=== PATIENT | male | born 1930 | race Caucasian/White ===

== ENCOUNTER 2016-03-31 | Outpatient (CLI) | payer MEDICARE, OTHER | END 2016-03-31 23:59 | disposition EMS.NT ==

== ENCOUNTER 2016-05-16 | Outpatient (CLI) | payer MEDICARE, OTHER | END 2016-05-16 12:58 | disposition critical access hospital (66) | CPT/HCPCS: A0425; A0427 ==

== ENCOUNTER 2016-05-16 12:59 | Emergency (ER) | payer MEDICARE, OTHER ==
[2016-05-16] MEDS ORDERED: SODIUM CHLORIDE 0.9% 1,000 ML IV ONE (13:06)
[2016-05-16] MEDS ORDERED: SODIUM CHLORIDE 0.9% 500 ML IV ONE (15:40)
== END 2016-05-16 16:15 | disposition home or self-care (01) ==
DX: E86.0 Dehydration (principal); G20 Parkinson's disease; I10 Essential (primary) hypertension; Z85.038 Personal history of other malignant neoplasm of large intestine

== ENCOUNTER 2016-10-20 15:15 | Outpatient (CLI) | payer MEDICARE, OTHER | END 2016-10-20 15:16 | disposition home or self-care (01) | LOC: LAB.R 15:15 | PROVIDERS: ATTEND Family Medicine | DX: N39.0 Urinary tract infection, site not specified (principal) | CPT/HCPCS: 87086 ==

== ENCOUNTER 2016-11-08 16:11 | Outpatient (CLI) | payer MEDICARE, OTHER | END 2016-11-08 16:12 | disposition EMS.NT | LOC: EMS 16:11 | PROVIDERS: ATTEND Surgery | DX: Z03.89 Encounter for observation for other suspected diseases and conditions ruled out (principal) ==

== ENCOUNTER 2017-02-20 23:19 | Outpatient (CLI) | payer MEDICARE, OTHER | END 2017-02-20 23:20 | disposition short-term general hospital (02) | LOC: EMS 23:19 | PROVIDERS: ATTEND Surgery | DX: M25.551 Pain in right hip (principal); W18.30XA Fall on same level, unspecified, initial encounter; Y93.01 Activity, walking, marching and hiking; Y92.003 Bedroom of unspecified non-institutional (private) residence as the place of occurrence of the external cause | CPT/HCPCS: A0170; A0425; A0427 ==

== ENCOUNTER 2017-03-29 09:09 | Outpatient (CLI) | payer MEDICARE, OTHER | END 2017-03-29 09:10 | disposition critical access hospital (66) | LOC: EMS 09:09 | PROVIDERS: ATTEND Surgery | DX: R46.4 Slowness and poor responsiveness (principal); R29.810 Facial weakness; R53.83 Other fatigue | CPT/HCPCS: A0425; A0429 ==

== ENCOUNTER 2017-03-29 09:13 | Observation (INO) | payer MEDICARE, OTHER ==
--- NOTE | 2017-03-29 09:39 | ED Physician Documentation ---
PD HPI FOCAL NEURO - Stated complaint Stated Complaint: POSS STROKE - Chief complaint Chief Complaint: Neuro - History obtained from History obtained from: Family, EMS - History of Present Illness Timing - onset: How many hours ago (1.5) Timing - details: Abrupt onset Time of symptom onset unknown: Time of onset unknown (08:00) Severity of deficit: Moderate Weakness: Face, Arm, Leg Numbness: Face, Arm, Leg Associated symptoms: No: Headache, Nausea / vomiting, Head injury, Chest pain Baseline status: positive: Wheelchair (rehab S/P ORIF right femur fx), Dementia - Additional information Additional information: The patient is an 86-year-old male with a history of Parkinson's disease and 5 weeks status post ORIF right femur fracture, who presents via ambulance after becoming unresponsive while at the breakfast table at [facility] this morning 1.5 hours prior to arrival, at 8 AM. Medics noticed left facial droop and left arm weakness. He has had no vomiting, and denies headache or chest pain. There is been no recent trauma. Past medical history, in addition to Parkinson's and femur surgery, is significant for dementia, pacemaker placement, and remote history of colon cancer. CODE STATUS is DO NOT RESUSCITATE. Review of Systems Unable to obtain: Confused, Dementia Constitutional: denies: Fever Cardiac: denies: Chest pain / pressure Respiratory: denies: Dyspnea, Cough GI: denies: Vomiting Neurologic: reports: Focal weakness, Numbness. denies: Headache PD PAST MEDICAL HISTORY - Past Medical History Cardiovascular: Hypertension, Other Neuro: Dementia, Parkinson's Endocrine/Autoimmune: None GI: Other (Colon CA) : None HEENT: Chronic vision loss Psych: None Musculoskeletal: Other Derm: None - Past Surgical History Past Surgical History: Yes General: Colonoscopy, Other Ortho: Other (5 weeks S/P ORIF right femur fx) HEENT: Tonsil/Adenoidectomy Derm: Other - Present Medications Home Medications: Ambulatory Orders Medication Instructions Recorded Confirmed Bimatoprost 0.03% [Lumigan] 1 drops EACHEYE QPM 11/05/13 03/29/17 Brimonidine/Timolol [Combigan] 1 drops EACHEYE BID 11/05/13 03/29/17 Aspirin [Aspirin EC] 81 mg PO DAILY 03/29/17 03/29/17 Carbidopa/Levodopa ER 25/100 1 tab PO 0700,1200,1700,2100 03/29/17 03/29/17 [Sinemet Cr 25 mg/100 mg] Sertraline [Zoloft] 25 mg PO DAILY 03/29/17 03/29/17 clonazePAM [Clonazepam] 0.25 mg PO QPM 03/29/17 03/29/17 - Allergies Allergies/Adverse Reactions: Allergies Allergy/AdvReac Type Severity Reaction Status Date / Time No Known Drug Allergies Allergy Verified 05/16/16 13:02 - Social History Does the pt smoke?: No Smoking Status: Never smoker Does the pt drink ETOH?: No Does the pt have substance abuse?: No - Immunizations Immunizations are current?: Yes - POLST Patient has POLST: No PD ED PE NORMAL - Vitals Vital signs reviewed: Yes (Mildly hypertensive.) - General General: Other (Alert, with right preferential gaze. Responds slowly to questions, and is difficult to understand.) - HEENT HEENT: Atraumatic, PERRL, Pharynx benign, Other (Right preferential gaze, but does look to the left when prompted.) - Neck Neck: No adenopathy, No JVD - Cardiac Cardiac: RRR - Respiratory Respiratory: No respiratory distress, Clear bilaterally - Abdomen Abdomen: Soft, Non tender - Back Back: No CVA TTP - Derm Derm: No rash - Extremities Extremities: No edema, No calf tenderness / cord - Neuro Neuro: Other (Please see an IHSS exam.) Eye Opening: Spontaneous Motor: Obeys Commands Verbal: Confused GCS Score: 14 NIHSS - Time Time: 09:30 - Level of Consciousness Level of consciousness: (1) Not alert, but arousable by minor stimulation to obey, or answer LOC Questions: (1) Answers one Q correctly LOC Commands: (0) Performs both correctly - Gaze Best Gaze: (1) Partial gaze palsy - Visual Visual: (1) Partial hemianopia - Facial Palsy Facial Palsy: (2) Partial paralysis - Motor Arms (both separate) Motor Arm (right): (0) No drift Motor Arm (left): (2) Some effort against gravity - Motor Legs (both separate) Motor Leg (right): (3) No effort against gravity Motor Leg (left): (1) Drift - Limb Ataxia Limb Ataxia: (-) Amputation (Right leg is not amputated, but the patient barely tries to raise it. This is the leg he has been undergoing rehab for recent orthopedic surgery.) - Sensory Sensory: (1) Wjhk-gj-xisymhdm loss - Best Language Best Language: (1) [id number] - Dysarthria Dysarthria: (1) Xqvc-jy-[id number] dysarthria - Extinction and Inattention (formally neg Extinction and inattention: (1) Visual,tactile,auditory,spatial, or personal inattention - Total Score/Results Total Score/Result: 16 Results - Vitals Vitals: Vital Signs - 24 hr 03/29/17 03/29/17 09:21 09:45 Temperature 36.4 C L Heart Rate 87 90 Respiratory 14 16 Rate Blood Pressure 141/83 H O2 Saturation 97 99 Oxygen O2 Source Room air - EKG (time done) 09:36 Rate: Rate (enter#) (158) Rhythm: Paced Other comments: Other comments (Diffuse artifact from Parkinsonian tremor.) - Labs Labs: Laboratory Tests 03/29/17 03/29/17 03/29/17 09:17 09:20 09:20 WBC 7.3 RBC 3.39 L Hgb 11.1 L Hct 32.7 L MCV 96.3 H MCH 32.8 H MCHC 34.1 RDW 13.9 Plt Count 169 MPV 9.6 Neut # 5.2 Lymph # 1.1 L [place] # 0.5 Eos # 0.4 Baso # 0.1 Absolute Nucleated RBC 0.01 Nucleated RBC % 0.1 PT INR APTT Sodium 139 Potassium 4.2 Chloride 103 Carbon Dioxide 25 Anion Gap 11.0 BUN 21 H Creatinine 1.0 Estimated GFR (MDRD) 71 L Glucose 114 H POC Whole Bld Glucose 102 H Calcium 8.9 Total Bilirubin 0.7 AST 28 ALT < 10 L Alkaline Phosphatase 114 Total Protein 6.8 Albumin 3.5 Globulin 3.3 Albumin/Globulin Ratio 1.1 Lipase 20 L 03/29/17 09:47 WBC RBC Hgb Hct MCV MCH MCHC RDW Plt Count MPV Neut # Lymph # [place] # Eos # Baso # Absolute Nucleated RBC Nucleated RBC % PT 12.5 INR 1.1 APTT 25.2 Sodium Potassium Chloride Carbon Dioxide Anion Gap BUN Creatinine Estimated GFR (MDRD) Glucose POC Whole Bld Glucose Calcium Total Bilirubin AST ALT Alkaline Phosphatase Total Protein Albumin Globulin Albumin/Globulin Ratio Lipase - Rads (name of study) Head CT stroke protocol Radiology: Prelim report reviewed, EMP read contemporaneously, See rad report ( No acute intracranial abnormality is identified. Parenchymal volume loss and chronic white matter changes.) PD MEDICAL DECISION MAKING - ED course Complexity details: reviewed old records, reviewed results, re-evaluated patient , considered differential, d/w patient, d/w family, d/w [employer] consultant ED course: The patient's presentation is significant for acute stroke with left-sided neurologic deficits. Head CT reveals no evidence of intracranial hemorrhage. Acute infarct is not yet evident on the CT scan. On repeated exams the patient' s neurologic deficits are improving quite significantly over time. When he returned from CT scan he was much more alert, and could answer questions more clearly. He demonstrates greater ability to lift his left arm off the bed, although left arm drift remains. Likewise with his left leg. He continues to have decreased light touch sensation on the left face, arm, and leg. I discussed his condition with the neurologist at [facility], who recommended rectal aspirin and CT angiography of the head and neck. He advises that the patient is a high risk candidate for TPA and would recommend not administering TPA. I discussed his presentation with Dr. Lubin, who will admit him on observation status. Departure - Departure Disposition: ED Place in Observation Clinical Impression: Dementia, Parkinson disease Cerebrovascular accident (CVA) Qualifiers: CVA mechanism: unspecified Qualified Code(s): I63.9 - Cerebral infarction, unspecified Condition: Fair Discharge Date/Time: 03/29/17 11:26
[2017-03-29 09:42] LABS: BASOPHILS # (AUTO) 0.1 10^3/uL (0.0-0.1); BASOPHILS % (AUTO) 1.2 %; EOSINOPHILS # (AUTO) 0.4 10^3/uL (0.0-0.7); EOSINOPHILS % (AUTO) 5.3 %; HGB - HEMOGLOBIN 11.1 g/dL (14.0-18.0); LYMPHOCYTES # (AUTO) 1.1 10^3/uL (1.5-3.5); LYMPHOCYTES % (AUTO) 15.7 %; MEAN CORPUSCULAR HEMOGLOBIN 32.8 pg (27.0-31.0); MEAN CORPUSCULAR HGB CONC 34.1 g/dL (32.0-36.0); MEAN CORPUSCULAR VOLUME 96.3 fL (80.0-94.0); MEAN PLATELET VOLUME 9.6 fL (7.4-11.4); MONOCYTES # (AUTO) 0.5 10^3/uL (0.0-1.0); MONOCYTES % (AUTO) 7.2 %; NEUTROPHILS # (AUTO) 5.2 10^3/uL (1.5-6.6); NEUTROPHILS % (AUTO) 70.6 %; PLT - PLATELET COUNT 169 10^3/uL (130-450); RED BLOOD COUNT 3.39 10^6/uL (4.70-6.10); RED CELL DISTRIBUTION WIDTH 13.9 % (12.0-15.0); WHITE BLOOD COUNT 7.3 x10^3/uL (4.8-10.8)
--- NOTE | 2017-03-29 09:48 | CT Report ---
EXAM: CT HEAD EXAM DATE: 03/29/2017 09:36 AM. CLINICAL HISTORY: Left sided neuro deficits. COMPARISON: 02/16/2017. 10/22/2009. TECHNIQUE: Multiaxial CT images were obtained from the foramen magnum to the vertex. Reformats: Coron al. IV contrast: None. In accordance with CT protocol optimization, one or more of the following dose reduction techniques w ere utilized for this exam: automated exposure control, adjustment of mA and/or KV based on patient s ize, or use of iterative reconstructive technique. FINDINGS: Parenchyma: Parenchymal volume loss with periventricular regions of low attenuation. Remote left basa l ganglia infarct versus prominent perivascular space again seen. No midline shift. No mass effect. Extraaxial Spaces: Prominent. No subdural or epidural collections identified. Ventricles: Prominent although symmetric. No hydrocephalus. Sinuses and Orbits: Imaged paranasal sinuses, orbits, and mastoids show no significant abnormality. Bones: No evidence of fracture or calvarial defect. Other: Changes are seen from lens surgery. Otherwise globes and orbits are unremarkable. Vascular higinio cifications. IMPRESSION: 1. No acute intracranial abnormality is identified. 2. Parenchymal volume loss and chronic white matter changes. Critical result: Findings discussed with Dr. Grant at 0946 hrs. On 03/29/2017. [facility] Referring Provider Line: [phone] SITE ID: [id number]
[2017-03-29 09:55] LABS: ALBUMIN 3.5 g/dL (3.2-5.5); ALBUMIN/GLOBULIN RATIO 1.1 (1.0-2.2); ALKALINE PHOSPHATASE 114 IU/L (42-121); ALT ALANINE AMINOTRANSFERASE < 10 IU/L (10-60); AST ASPARTATE AMINOTRANSFERASE 28 IU/L (10-42); BILIRUBIN,TOTAL 0.7 mg/dL (0.2-1.0); BUN - BLOOD UREA NITROGEN 21 mg/dL (6-20); CALCIUM 8.9 mg/dL (8.5-10.3); CARBON DIOXIDE - CO2 25 mmol/L (21-32); CHLORIDE 103 mmol/L (101-111); GFR - MDRD 71 (>89); GLUCOSE 114 mg/dL (70-100); LIPASE 20 U/L (22-51); SODIUM 139 mmol/L (135-145); TOTAL PROTEIN 6.8 g/dL (6.7-8.2)
[2017-03-29 09:59] LABS: INR 1.1 (0.8-1.2); PT - PROTHROMBIN TIME 12.5 secs (9.9-12.6)
[2017-03-29] MEDS ORDERED: ASPIRIN 300 MG SUPP PR STA (10:17)
[2017-03-29] MEDS ORDERED: IOPAMIDOL-300 100 ML VIAL ONE (10:27)
[2017-03-29] MEDS ORDERED: ONDANSETRON ODT 4 MG TABLET TL PRN (10:34)
[2017-03-29] MEDS ORDERED: ACETAMINOPHEN 325 MG TABLET PO PRN (10:34)
[2017-03-29] MEDS ORDERED: ONDANSETRON 4 MG/2 ML VIAL IVP PRN (10:34)
[2017-03-29] MEDS ORDERED: HYDROcod/ACETAM 5/325 MG TABLET PO PRN (10:34)
[2017-03-29] MEDS ORDERED: SODIUM CHLORIDE FLUSH 0.9% 10 ML SYRINGE IVP PRN (10:34)
--- NOTE | 2017-03-29 12:12 | CT Preliminary Report ---
Exam: CT NECK ANGIO IMPRESSION: Multifocal arterial atherosclerotic disease. Approximately 50% stenosis of the proximal r ight cervical ICA. Additional cervical vertebral and carotid artery stenosis is present but does not otherwise appear acute or hemodynamically significant. [facility] SITE ID: [id number]
[2017-03-29] MEDS: CARBIDOPA/LEVODOPA ER 25 MG/100 MG TABLET PO SCH ×3 (12:13→20:26)
[2017-03-29] MEDS ORDERED: IOPAMIDOL-300 100 ML VIAL IVP ONE (12:20)
--- NOTE | 2017-03-29 12:27 | CT Preliminary Report ---
Exam: CT HEAD ANGIO Impression: 1. Multiple foci of mild, moderate and severe intracranial arterial stenosis involving especially in the posterior circulation. 2. Especially severe stenosis is present of the right intradural vertebral artery. Also severe focal stenosis is seen at the junction of the basilar and left PANTOGRAPHER. 3. Less severe appearing multifocal anterior and middle cerebral artery stenoses. 4. No evidence for acute appearing proximal occlusive filling defect of the anterior, middle or poste rior cerebral arteries. [facility] SITE ID: [id number]
--- NOTE | 2017-03-29 12:42 | CT Report ---
EXAM: CT ANGIOGRAM HEAD. CT SCAN OF THE HEAD WITH CONTRAST. EXAM DATE: 03/29/2017 10:55 AM CLINICAL HISTORY: CVA with left-sided neuro deficits.. COMPARISON: None. TECHNIQUE: - CT Scan Head: Using a multidetector scanner, axial images were acquired from the foramen magnum to the skull vertex following contrast administration. - CT Angiogram: Using a multidetector scanner, high-resolution axial images were acquired from the sk ull base through vertex following rapid infusion of intravenous contrast. Reformats: Multiplanar MIP reformats were reconstructed. Nascet criteria used for stenosis measurement. IV Contrast: 80 mL Isovue 300. In accordance with CT protocol optimization, one or more of the following dose reduction techniques w ere utilized for this exam: automated exposure control, adjustment of mA and/or KV based on patient s ize, or use of iterative reconstructive technique. FINDINGS: Brain CT with contrast: No abnormal enhancement. Head CT angiogram: Moderate to severe stenosis and irregularity of the lumen of the proximal right intradural vertebral artery. Atherosclerotic calcification is present here. Near-complete loss of luminal opacification of the terminal right intradural vertebral artery, stenosis versus occlusion, the vessel was too small to further evaluate accurately. Unremarkable appearance of the left intradural vertebral artery which is congenitally dominant. Mild stenosis of the proximal basilar artery. Superior focal luminal stenosis at the junction of the basilar artery and left posterior cerebral art negrita. Additional [id number]-dl-[id number] foci of more peripheral left WOOD SCRAP HANDLER branches. Probable origin of the right WOOD SCRAP HANDLER. Moderately prominent segmental stenosis of the distal right P CA P2 segment. Mild focal stenosis at the origin of the congenitally dominant probably solitary left anterior cerebr al artery A1 segment. No other evidence for anterior cerebral artery flow-limiting stenosis or proxim al occlusion. Multifocal mild to moderate more likely chronic than acute stenosis of branches of both middle cerebr al arteries without evidence for acute proximal occlusive filling defect. Moderate to severe atherosclerotic calcifications of the cavernous and supraclinoid segments of both internal carotid arteries. No evidence for aneurysm of the [place]. Contrast opacification of the major dural venous si nuses is present as expected. IMPRESSION: 1. Multiple foci of mild, moderate, and severe intracranial arterial stenosis involving especially th e posterior circulation. 2. Especially severe stenosis is present of the right intradural vertebral artery. Also severe focal stenosis is seen at the junction of the basilar and left WOOD SCRAP HANDLER. 3. Less severe-appearing multifocal anterior and middle cerebral artery stenoses. 4. No evidence for acute-appearing proximal occlusive filling defect of the anterior, middle or poste rior cerebral arteries. [facility] Referring Provider Line: [phone] SITE ID: [id number]
--- NOTE | 2017-03-29 12:42 | CT Report ---
EXAM: CT ANGIOGRAM NECK EXAM DATE: 03/29/2017 10:55 AM. CLINICAL HISTORY: Left-sided neuro deficits. COMPARISON: None. TECHNIQUE: Routine axial helical imaging was performed from the skull base through the aortic arch. I V Contrast: 80 mL Isovue 300. Reconstructions: Routine multiplanar 3D MIP reconstructions. Evaluation of arterial stenosis is based on a NASCET method of measurement. In accordance with CT protocol optimization, one or more of the following dose reduction techniques w ere utilized for this exam: automated exposure control, adjustment of mA and/or KV based on patient s ize, or use of iterative reconstructive technique. FINDINGS: Prominent atherosclerotic calcifications of the top of the aortic arch. Mild focal left vertebral artery origin stenosis. The V1 segment of the left vertebral artery is part ially obscured by beam hardening streak artifact. Mild probably atherosclerotic multifocal irregularity and stenosis of the right cervical vertebral ar ling, which appears patent. Moderately prominent atherosclerotic disease at the right cervical carotid bifurcation with extension into the proximal right cervical ICA. Maximal luminal stenosis in the proximal right cervical ICA me asures about 50%. Moderately prominent atherosclerotic disease in the region of the left cervical carotid bifurcation. Left cervical carotid stenosis appears relatively mild and does not appear to be hemodynamically sign ificant. Cardiac pacer/defibrillator. Prominent chronic multilevel degenerative cervical spinal spondylosis. IMPRESSION: Multifocal arterial atherosclerotic disease. Approximately 50% stenosis of the proximal r ight cervical ICA. Cervical vertebral and carotid artery stenosis is present as described, but does n ot otherwise appear acute or hemodynamically significant. [facility] Referring Provider Line: [phone] SITE ID: [id number]
[2017-03-29] MEDS: SODIUM CHLORIDE 0.9% 1,000 ML IV SCH ×2 (13:00→22:42)
[2017-03-29] MEDS: SODIUM CHLORIDE FLUSH 0.9% 10 ML SYRINGE IVP SCH ×2 (13:00→22:10)
[2017-03-29 15:13] LABS: BILIRUBIN,URINE NEGATIVE (NEGATIVE); GLUCOSE, URINE (UA) NEGATIVE (NEGATIVE); KETONES,URINE (UA) NEGATIVE (NEGATIVE); LEUKOCYTE ESTERASE, URINE NEGATIVE (NEGATIVE); NITRITE,URINE NEGATIVE (NEGATIVE); OCCULT BLOOD,URINE NEGATIVE (NEGATIVE); PROTEIN,URINE NEGATIVE (NEGATIVE); UROBILINOGEN,URINE 1 (NORMAL) E.U./dL (NORMAL)
[2017-03-29 15:15] LABS: CLARITY,URINE CLEAR (CLEAR)
--- NOTE | 2017-03-29 15:30 | HISTORY & PHYSICAL EXAMINATION ---
Chief Complaint - Chief Complaint Chief Complaint: Sudden onset of left body weakness sitting at the breakfast table this morn History of Present Illness - Admitted From Admitted From:: Emergency room - History Obtained From Records Reviewed: [facility] History obtained from: , Dr. Grant, and [facility], part of it was from the patient Exam Limitations: Patient's memory - History of Present Illness HPI Comment/Other: He is a chantelle 86-year-old man who developed Parkinson's disease about 8 years ago. The says the last 2 years have been particularly hard. He has had a gradual functional decline, increasing memory loss, and rare falls. He had fallen 3 times in the summer 2016, and ended up with a left skin laceration over the left elbow. He was seen by home health and he improved with physical therapy. Unfortunately he fell in February. He had just left the bathroom and was walking back to the bedroom when he lost his balance and fell on his side and ended up with an open reduction closed hip fracture. He underwent an open reduction internal fixation at [facility]. From [facility] he went to [facility] for rehab. His states that she felt he was progressing in the initial stay. But it has been a roller coaster and he has actually deteriorated in the last week. Not as alert or participating with PT. In the last 2 days he has had episodes where he would just stare off into space and be unresponsive for a few seconds before coming back to himself. His risk factors for stroke are high blood pressure, hyperlipidemia and not much else. He was sitting at the breakfast table at [facility] when he suddenly was witnessed to have left facial droop and slurred speech and unable to move his left arm. He was brought to the hospital and evaluated by the emergency room physician with those deficits were noted. He was sent to CT scanner and by the time he came back he was already resolving. Tele-stroke consult was obtained with [facility]. [facility] did not feel he was a candidate for thrombolytics. As such the patient is now brought in under observation. The feels that his residual weakness on the left side is almost completely resolved now. 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) Respiratory: reports: None Neuro: reports: Dementia, Parkinson's Endocrine/Autoimmune: reports: Other (Vitamin D deficiency) GI: reports: Other (Left sigmoid colon cancer with sigmoidectomy in the late ) : reports: Benign prostate hypertrophy, Nocturia HEENT: reports: Chronic vision loss, Glaucoma, Other (Cataracts) Psych: reports: Depression Musculoskeletal: reports: Osteoarthritis (knees), Chronic back pain Derm: reports: Eczema, Other (basal cell cancer of face) MRSA Hx?: No Other Past Medical History: chronic anemia - Past Surgical History General: reports: Appendectomy, Colonoscopy, Other (left sigmoidectomy late 1979) Ortho: reports: Other (5 weeks S/P ORIF right femur fx) HEENT: reports: Tonsil/Adenoidectomy Derm: reports: Other - Family & Social History Family History Comment/Other: mom at age 92 of old age dad at age 68 of some time of cancer 1 sister lives in shelter with dementia in [place] 2 children. 1 daughter and 1 son. the son developed parkinsons at age 34 and is 60 now with severe deterioration Living arrangement: At home Living Situation: With spouse/s.o. Social History Notes: It has become very tiring to take care of him 24/ so she is hiring someone soon to help her. She sleeps about 4 hours a night for the last 2 years bc of nocturia for him. He is still a joker, and his memory loss has not changed his personality other than his depression. Completely dependent for ADL's on his . He can use a cane with a shuffle and CGA at home. But he has fallen more and more this last year. Born in [place], [place] and went into the [employer] for 2 years. for close to 70 years to his only . They lived in [place] when he worked over 30 years for [employer] and she was a area secretary. Moved to the [place] to be close to daughter. He never smoked and use to drink at most a beer or glass a wine a day. Hasn't for years. No recreational substance ab use. - Substance History Use: Uses substance without health or social issues: NONE Abuse: Recurrent use of substance despite neg consequences: NONE Dependence: Experiences withdrawal or developed tolerances: NONE - POLST Patient has POLST: Yes POLST Status: DNR Meds/Allgy - Home Medications Home Medications: Ambulatory Orders Medication Instructions Recorded Confirmed Bimatoprost 0.03% [Lumigan] 1 drops EACHEYE QPM 11/05/13 03/29/17 Brimonidine/Timolol [Combigan] 1 drops EACHEYE BID 11/05/13 03/29/17 Aspirin [Aspirin EC] 81 mg PO DAILY 03/29/17 03/29/17 Carbidopa/Levodopa ER 25/100 1 tab PO 0700,1200,1700,2100 03/29/17 03/29/17 [Sinemet Cr 25 mg/100 mg] Sertraline [Zoloft] 25 mg PO DAILY 03/29/17 03/29/17 clonazePAM [Clonazepam] 0.25 mg PO QPM 03/29/17 03/29/17 - Allergies Allergies/Adverse Reactions: Allergies Allergy/AdvReac Type Severity Reaction Status Date / Time No Known Drug Allergies Allergy Verified 05/16/16 13:02 Review of Systems - Constitutional Constitutional: reports: Fatigue, Poor appetite, Other (has a tendendency to get dehydrated from lack of po intake) - Eyes Eyes: reports: Blurred vision (chronic). denies: Pain, Irritation, Amaurosis - Ears, Nose & Throat Ears, Nose & Throat: reports: Hearing loss. denies: Ear pain, Tinnitus, Vertigo , Nasal obstruction, Nasal congestion - Cardiovascular Cariovascular: reports: Irregular heart rate, Lightheadedness (if he stands for too long). denies: Palpitations, Chest pain, Edema, Syncope, Exertional dyspnea , Decr. exercise tolerance - Respiratory Respiratory: reports: Cough (daily and mild), Sputum production (clear of small amounts). denies: Wheezing, Snoring, Hemoptysis, Orthopnea, SOB at rest - Gastrointestinal Gastrointestinal: denies: Abdominal pain, Abdominal distention, Constipation, Diarrhea, Black stools, Bloody stools, Nausea - Genitourinary Genitourinary: reports: Frequency, Urgency, Incontinence, Nocturia. denies: Dysuria, Hematuria, Flank pain - Musculoskeletal Musculoskeletal: reports: Back pain (not new), Muscle aches, Stiffness (from OA , not new) - Integumentary Integumentary: reports: Rash (in September in his groin, needed cream then). denies : Pruritis, Lesions - Neurological Neurological: reports: General weakness, Memory problems, Pre-existing deficit, Abnormal gait, Incoordination. denies: Seizures, Slurred speech - Psychiatric Psychiatric: reports: Depression - Endocrine Endocrine: denies: Polyuria, Polydypsia, Polyphagia - Hematologic/Lymphatic Hematologic/Lymphatic: reports: Anemia (chronic). denies: Blood clots, Lymphadenopathy, Bleeding tendencies Exam - Vital Signs Reviewed Vital Signs: Yes Vital Signs: Vital Signs x48h Temp Pulse Resp BP Pulse Ox 03/29/17 13:46 36.5 C 79 17 138/62 H 99 03/29/17 11:48 36.6 C 81 17 147/64 H 100 - Physical Exam General Appearance: positive: No acute distress, Alert, Other (tall, lanky elderly white male in NAD,masked fascies, no eyelashes so looks surprised all the time) Eyes Bilateral: positive: PERRL, EOMI ENT: positive: Dry mucous membranes. negative: Purulent nasal drainage, Pharyngeal erythema Neck: positive: No JVD. negative: Lymphadenopathy (R), Lymphadenopathy (L), Stiff neck, Carotid bruit Respiratory: positive: Chest non-tender, Rhonchi (once in right mid lung that cleared when I asked him to give me a deep cough). negative: Wheezes, Rales Cardiovascular: positive: Regular rate & rhythm, Systolic murmur, Other (pacer battery palpable). negative: Gallop/S4, Friction rub Peripheral Pulses: positive: 1+ Abdomen: positive: Non-tender, No organomegaly, Nml bowel sounds, No distention Skin: positive: Warm, Dry Extremities: positive: Full ROM (on passive ROM, he can't follow my instructions well to do active ROM), No pedal edema, Other (feet cold) Neurologic/Psychiatric: positive: CN's nml (2-12) (except for hearing), Disoriented to place, Disoriented to time, Slurred/abnml speech (slow and pedantic). negative: Motor nml (resting hand tremors, and when I move his arms and legs: stiff and resistant movements. facial expression gone even when he jokes but his eyes will widen to make a point. takes me 3 tries to get him to follow a single command. Can't do more than one command at a time. But no focal deficits. 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 legs equal), Facial droop Conclusion/Plan - Problem List (1) TIA (transient ischemic attack) Conclusion/Plan: right sided with left body weakness. now resolved. Cant do MRI bc of pacemaker. not a candidate for tPa. Plan: ASA Statin CTA of head and neck. Qualifiers: Transient cerebral ischemia type: carotid artery syndrome (hemispheric) Qualified Code(s): G45.1 - Carotid artery syndrome (hemispheric) (2) Parkinson disease Conclusion/Plan: gradual worsening over 8 years with last 2 being moderate to severe loss of functional mobility. plan is for careprovider hire to help his . she is exhausted. Plan: continue usual meds PT/OT eval here I've asked his to begin the conversation with him and their children about future plans. Main question to answer is what amount of disability will he and she tolerate before they transition to Hospice. they do have a POLST and he is DNR. (3) HTN (hypertension) Conclusion/Plan: but known autonomic dysfunction with standing so he will get dizzy and orthostatic. Plan: monitor BP resume usual meds Qualifiers: Hypertension type: essential hypertension Qualified Code(s): I10 - Essential (primary) hypertension (4) Do not resuscitate status Conclusion/Plan: she has a POLST at home. - Lab Results Fish Bones: 03/29/17 09:20 03/29/17 09:20 - Diagnostic Imaging Results Diagnostic Imaging Results: positive: Final report reviewed - EKG Results EKG Interpreted Independently: Yes EKG Findings: paced rhythm. no further interpretation. Core Measures - Anticipated LOS I expect patient to be DC'd or transferred within 96 hours.: Yes - DVT/VTE - Prophylaxis VTE/DVT Device ordered at admit?: Yes
[2017-03-29] MEDS: TIMOLOL OPTH EACHEYE SCH (20:26)
[2017-03-29] MEDS: BRIMONIDINE EACHEYE SCH (20:26)
[2017-03-29] MEDS ORDERED: clonazePAM 0.5 MG TABLET PO SCH (21:00)
[2017-03-29] MEDS ORDERED: ATORVASTATIN 40 MG TABLET PO SCH (21:00)
[2017-03-30 06:10] LABS: BASOPHILS # (AUTO) 0.1 10^3/uL (0.0-0.1); BASOPHILS % (AUTO) 0.9 %; EOSINOPHILS # (AUTO) 0.3 10^3/uL (0.0-0.7); HGB - HEMOGLOBIN 9.7 g/dL (14.0-18.0); LYMPHOCYTES # (AUTO) 1.2 10^3/uL (1.5-3.5); LYMPHOCYTES % (AUTO) 18.7 %; MEAN CORPUSCULAR HEMOGLOBIN 32.2 pg (27.0-31.0); MEAN CORPUSCULAR HGB CONC 32.8 g/dL (32.0-36.0); MEAN PLATELET VOLUME 9.4 fL (7.4-11.4); MONOCYTES # (AUTO) 0.6 10^3/uL (0.0-1.0); MONOCYTES % (AUTO) 9.2 %; NEUTROPHILS # (AUTO) 4.3 10^3/uL (1.5-6.6); NEUTROPHILS % (AUTO) 66.2 %; PLT - PLATELET COUNT 143 10^3/uL (130-450); RED CELL DISTRIBUTION WIDTH 14.2 % (12.0-15.0); WHITE BLOOD COUNT 6.5 x10^3/uL (4.8-10.8)
[2017-03-30] MEDS: CARBIDOPA/LEVODOPA ER 25 MG/100 MG TABLET PO SCH ×2 (06:14→11:52)
[2017-03-30] MEDS: SODIUM CHLORIDE FLUSH 0.9% 10 ML SYRINGE IVP SCH (06:14)
[2017-03-30 06:25] LABS: ALBUMIN 3.2 g/dL (3.2-5.5); ALBUMIN/GLOBULIN RATIO 1.1 (1.0-2.2); ALKALINE PHOSPHATASE 102 IU/L (42-121); ALT ALANINE AMINOTRANSFERASE < 10 IU/L (10-60); AST ASPARTATE AMINOTRANSFERASE 24 IU/L (10-42); BILIRUBIN,TOTAL 0.6 mg/dL (0.2-1.0); BUN - BLOOD UREA NITROGEN 24 mg/dL (6-20); CALCIUM 8.4 mg/dL (8.5-10.3); CARBON DIOXIDE - CO2 24 mmol/L (21-32); CHLORIDE 103 mmol/L (101-111); CREATININE 0.8 mg/dL (0.6-1.2); GFR - MDRD 92 (>89); GLUCOSE 103 mg/dL (70-100); SODIUM 138 mmol/L (135-145); TOTAL PROTEIN 6.2 g/dL (6.7-8.2)
[2017-03-30] MEDS ORDERED: ASPIRIN 325 MG TABLET PO SCH (08:00)
[2017-03-30] MEDS ORDERED: POLYETHYLENE GLYCOL 3350 17 GM PACKET PO SCH (09:00)
[2017-03-30] MEDS ORDERED: SERTRALINE 25 MG TABLET PO SCH (09:00)
[2017-03-30] MEDS: TIMOLOL OPTH EACHEYE SCH (09:36)
[2017-03-30] MEDS: BRIMONIDINE EACHEYE SCH (09:36)
[2017-03-30] MEDS: SODIUM CHLORIDE 0.9% 1,000 ML IV SCH (09:42)
--- NOTE | 2017-03-30 10:22 | Discharge Plan ---
"Discharge Plan for SNF / [facility] - DC Plan and Transition Orders Disposition: 03 SNF DC/Xfer Condition: Fair SNF Transition Orders: Admit to: [facility] under the care of Mateusz Garcia MD Discharge Diagnosis: 1. TIA right brain with left body weakness 03/29/17. CT of head neg for acute stroke. CTA of head and neck with shotty arterial disease but no sig stenosis > 50%. Vertebral arteries open 2. mechanical fall 02/2017 with ORIF at [facility] 3. Parkinsons Disease with dementia and weight loss and functional mobility deficit 4. HTN 5. Hyperlipdemia 6. BPH 7. hx of colon cancer with left sigmoidectomy late 8. chronic vision loss 9. deafness Medicare Certification: I certify that [facility] is medically necessary on a continuing basis for any of the conditions for which she/he is receiving care during hospitalization. Notify PCP of admission and forward orders to primary provider for signature. Weight on admission and weekly. Call PCP immediately if weight increases by 5 pounds or if patient develops dyspnea, chest pain/tightness or edema. House Bowel Program: Yes/No If no BM after 2 days, nurse may give M.O.M. 30ml PO PRN and /or ducolax Supp 1 MT and /or RAMANA 250mg P.O., and/or senna 1-2 tabs PO. On day 3 nurse may give repeat above order until residents constipation is resolved. Immunizations: Annual Influenza Vaccine: no because already done. (between Nov 17 and June 16.) Unless allergy or already given Two-Step PPD: no because already done per [facility] [id number] or appropriate documentation of approved exceptions Treatments & Other Orders: Oxygen Orders: none Lab Tests or X-Rays Orders: none Orthopedic Orders: none. keep old wound clean and dry.. Medications: PLEASE REFER TO THE DISCHARGE MEDICATION LIST. Insulin Orders? no Diagnosis: no Diabetes Initiate hypo and hyperglycemia protocols for BG <70 and BG >375. May check BG prn for signs/symptoms of dysglycemia. Frequency of BG checks: [AC/Meal/HS] Basal Insulin: [] Lantus 100 units / ml inject subq as follows: [] [] Other: [] Correction Insulin: - Select the type of insulin below [Choose: Novolog/Humalog]100 units /ml insulin inject subq per orders indicate below [] LOW DOSE [] MODERATE DOSE [] MODERATE/HIGH DOSE [] HIGH DOSE GB UNITS GB UNITS GB UNITS GB UNITS 61-140 0 UNITS 61-140 0 UNITS 61-140 0 UNITS 61-140 0 UNITS 141-175 1 UNITS 141-175 1 UNITS 141-175 2 UNITS 141-175 3 UNITS 176-225 2 UNITS 176-225 3 UNITS 176-225 4 UNITS 176-225 5 UNITS 226-275 3 UNITS 226-275 5 UNITS 226-275 6 UNITS 226-275 7 UNITS 276-325 4 UNITS 276-325 7 UNITS 276-325 8 UNITS 276-325 9 UNITS 326-375 5 UNITS 326-375 9 UNITS 326-375 10 UNITS 326-375 11 UNITS >375 CONTACT MD >375 CONTACT MD >375 CONTACT MD >375 CONTACT MD Custom Dosing: [Choose: None/Novolog/Humalog] 100 units/ml Insulin inject subq as follows: GB Units 61-140 [] Units 141-175 [] Units 176-225 [] Units 226-275 [] Units 276-325 []Units 326-375 [] Units >375 Contact MD Allergies and Adverse Reactions: Allergies Allergy/AdvReac Type Severity Reaction Status Date / Time No Known Drug Allergies Allergy Verified 05/16/16 13:02 - Diet Type: Geriatric Texture: Regular May have monthly special meal: Yes - Therapies | Activity Therapy: Evaluation | Treat if indicated: PT, OT Rehabilitation Potential: Maximize functional status, Return to independent living Activity: Wt Bearing as Tolerated Assistance Devices: Walker"
[2017-03-30 13:34] VITALS: BP 142/66
== END 2017-03-30 14:17 ==
LOC: EDUNIT# → ED 09:13 → OBS 10:34
PROVIDERS: ADMIT Specialist; ATTEND Specialist
DX: G45.1 Carotid artery syndrome (hemispheric) (principal); G20 Parkinson's disease; F02.80 Dementia in other diseases classified elsewhere, unspecified severity, without behavioral disturbance, psychotic disturbance, mood disturbance, and anxiety; I10 Essential (primary) hypertension; E78.5 Hyperlipidemia, unspecified; Z91.81 History of falling; H54.3 Unqualified visual loss, both eyes; H91.93 Unspecified hearing loss, bilateral; Z85.038 Personal history of other malignant neoplasm of large intestine; Z90.49 Acquired absence of other specified parts of digestive tract; R63.4 Abnormal weight loss; I65.21 Occlusion and stenosis of right carotid artery; I65.01 Occlusion and stenosis of right vertebral artery; I66.22 Occlusion and stenosis of left posterior cerebral artery; I66.03 Occlusion and stenosis of bilateral middle cerebral arteries; Z95.0 Presence of cardiac pacemaker; N40.1 Benign prostatic hyperplasia with lower urinary tract symptoms; N39.498 Other specified urinary incontinence; R35.0 Frequency of micturition; R35.1 Nocturia; R39.15 Urgency of urination; Z66 Do not resuscitate; Z79.82 Long term (current) use of aspirin; Z79.899 Other long term (current) drug therapy; R63.0 Anorexia; F32.9 Major depressive disorder, single episode, unspecified
CPT/HCPCS: 36415; 70450; 70496; 70498; 80053; 81003; 83690; 85025; 85610; 85730; 93005; 96360; 96361; 97162; 99285; A9270; G0378; G8978; G8979; Q9967; 81001; 87086; 99284

== ENCOUNTER 2017-08-20 12:27 | Outpatient (CLI) | payer MEDICARE, OTHER | END 2017-08-20 12:28 | disposition hospice, inpatient (51) | LOC: EMS 12:27 | PROVIDERS: ATTEND Surgery | DX: G20 Parkinson's disease (principal) | CPT/HCPCS: A0425; A0428 ==

== ENCOUNTER 2018-03-09 10:38 | Outpatient (CLI) | payer MEDICARE, OTHER | END 2018-03-09 10:39 | disposition hospice, inpatient (51) | LOC: EMS 10:38 | PROVIDERS: ATTEND Surgery | DX: Z59.1 Inadequate housing (principal); G20 Parkinson's disease; Z74.01 Bed confinement status | CPT/HCPCS: A0425; A0428 ==